=== PATIENT | female | born 1970 | race Asian ===

== ENCOUNTER 2019-06-20 03:57 | Emergency (ER) | payer OTHER ==
[~2019-06-20] VITALS: Ht 154.9 cm; Wt 63.5 kg
[2019-06-20 03:57] VITALS: BP 146/87
--- NOTE | 2019-06-20 03:57 | NUR ---
Pt ambulated to bed 8 with strong, steady, upright gait.
--- NOTE | 2019-06-20 04:10 | NUR ---
SEEN AND EXAMINED BY ENEDINA WITH ORDERS AND CARRIED OUT.
[2019-06-20] MEDS ORDERED: LIDOCAINE/EPI 1% 1:100000 20 ML VIAL INJ ONE (04:15)
--- NOTE | 2019-06-20 04:15 | NUR ---
Blood for labwork drawn from [facility] per [facility] ORDER. Patient tolerated WELL
[2019-06-20 04:36] LABS: BASOPHILS % (AUTO) 0.6 % (0.0-2.0); EOSINOPHILS # (AUTO) 0.3 K/uL (0-0.4); EOSINOPHILS % (AUTO) 4.1 % (0.0-4.0); HEMATOCRIT 41.4 % (36-48); HEMOGLOBIN 13.5 g/dL (12.0-16.0); LYMPHOCYTES # (AUTO) 3.4 K/uL (2.5-16.5); LYMPHOCYTES % (AUTO) 43.4 % (20.5-51.1); MEAN CORPUSCULAR HEMOGLOBIN 29 pg (27-31); MEAN CORPUSCULAR HGB CONC 33 g/dL (33-37); MEAN CORPUSCULAR VOLUME 89.2 fL (80-94); MONOCYTES # (AUTO) 0.7 K/uL (0.8-1.0); MONOCYTES % (AUTO) 9.4 % (1.7-9.3); NEUTROPHILS # (AUTO) 3.3 K/uL (1.8-7.7); NEUTROPHILS % (AUTO) 42.5 % (42.2-75.2); PLATELET COUNT (AUTO) 375 K/uL (140-450); RED BLOOD CELL COUNT(AUTO) 4.63 MIL/uL (4.20-5.40); RED CELL DISTRIBUTION WIDTH 13.2 % (11.6-13.7); WHITE BLOOD COUNT (AUTO) 7.9 K/uL (4.8-10.8)
--- NOTE | 2019-06-20 04:36 | NUR ---
SENT TO CT VIA WHEELCHAIR WITH COMMUNITY ARTIST IN STABLE CONDITION
[2019-06-20 04:50] LABS: ALBUMIN 3.2 g/dL (3.4-5.0); ANION GAP 13.7 (8-16); CARBON DIOXIDE 25.9 mmol/L (21-32); CREATININE 0.7 mg/dL (0.6-1.3); MAGNESIUM 1.7 mg/dL (1.8-2.4); POTASSIUM 3.6 mmol/L (3.5-5.1); TOTAL BILIRUBIN 0.3 mg/dL (0.0-1.0)
--- NOTE | 2019-06-20 04:56 | NUR ---
PT RETURNED FROM CT
[2019-06-20 05:11] LABS: CREATINE KINASE MB 0.4 ng/mL (0-3.6)
[2019-06-20] MEDS ORDERED: ACETAMINOPHEN EXTRA STRENGTH 500 MG TAB PO ONE (05:30)
--- NOTE | 2019-06-20 06:00 | NUR ---
Patient has a 1 cm laceration to OCCIPTAL AREA. Dr. TORO applied 3 JOÃO using sterile technique. Edges well approximated. Site cleansed with NS. No bleeding noted. Pt tolerated well.
--- NOTE | 2019-06-20 06:02 | NUR ---
ALL RESULTS BACK AND NOTED BY ERMD AND FOR D/C
[2019-06-20] MEDS ORDERED: BACITRACIN OINT 500 UNITS/GM PKT TP ONE (06:05)
[2019-06-20 06:33] VITALS: BP 118/68
--- NOTE | 2019-06-20 06:33 | NUR ---
Patient discharged with v/s stable. Written and verbal after care instructions given and explained. Patient alert, oriented and verbalized understanding of instructions. Ambulatory with steady gait. All questions addressed prior to discharge. ID band removed. Patient advised to follow up with PMD. Rx of BACITRACIN OINTMENT 500MG given. Patient educated on indication of medication including possible reaction and side effects. Opportunity to ask questions provided and answered.
== END 2019-06-20 06:33 | disposition home or self-care (01) ==
LOC: MED 03:57
DX: S01.01XA Laceration without foreign body of scalp, initial encounter (principal); R55 Syncope and collapse; Z88.0 Allergy status to penicillin; W45.8XXA Other foreign body or object entering through skin, initial encounter; Y92.000 Kitchen of unspecified non-institutional (private) residence as the place of occurrence of the external cause; Y93.89 Activity, other specified; Y99.8 Other external cause status
CPT/HCPCS: 12002; 36415; 70450; 71045; 80053; 82550; 82553; 83735; 84484; 85025; 93005; 99284; J2001; Q0092